=== PATIENT | male | born 1960 | race Caucasian/White ===

== ENCOUNTER 2019-03-29 06:27 | Day surgery (SDC) | payer OTHER, BC ==
[2019-03-29] MEDS ORDERED: PROPOFOL 20 ML (07:26)
== END 2019-03-29 11:53 | disposition home or self-care (01) ==
LOC: GIL 06:27
DX: Z12.11 Encounter for screening for malignant neoplasm of colon (principal); K29.80 Duodenitis without bleeding; D12.4 Benign neoplasm of descending colon; D12.5 Benign neoplasm of sigmoid colon; I10 Essential (primary) hypertension; F17.200 Nicotine dependence, unspecified, uncomplicated
CPT/HCPCS: 43239; 88305; 88312